=== PATIENT | male | born 1950 | race Caucasian/White ===

== ENCOUNTER 2017-09-08 11:04 | Emergency (ER) | payer MEDICARE ==
[~2017-09-08] VITALS: Ht 175.3 cm; Wt 113.4 kg
--- NOTE | 2017-09-08 11:08 | Emergency Room Report ---
History of Present Illness Time Seen by [id number] Presenting Problem in Triage Pt arrived:Wheelchair Presenting Problem:STATES AT WORK LOST BALANCE, C/O WEAKNESS, NAUSEA Onset of symptoms date/time:/ or onset unknown for:MEDICAL HX UNKNOWN Treatment Prior to Arrival: ASSAYER Provided by: Sepsis Risk Assessment: Temp: 97.8 B/P: 177/85 MAP: 115 Pulse: 60 Resp: 18 Recent fever? N Clinical Suspician of Infection? N Mental Status: 1 - Regular (Normal Baseline) Sepsis Risk:Low Sepsis Risk Have you (or family members/close friends) recently traveled outside the [place]? N If Yes, where/when: Have you had exposure to infectious disease within the past month? N TB? Other? 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 He feels a little off balance, but denies any chest pain, denies near syncope, FSBS 234 on arrival. No fever or vomiting, no diarrhea, no abdominal pain, no unilateral symptoms. RN reports he neede assistance from car and seemed diffusely weak. No change in speech. No cephalgia. [place] a little diaphoretic and had some nausea, but feeling somewhat better now. No congestion or earache. RN states he had diaphoresis on arrival. This has abated. ALLERGIES Coded Allergies: Penicillins (09/08/17) History Medical History Surgical Hx Previous Surgery?N Review of Systems All Other Systems Reviewed and Negative Psychiatric/Neurological see HPI Physical Exam Vital Signs Vital Signs Date Time Temp Pulse Resp B/P Pulse O2 O2 Flow FiO2 Ox Delivery Rate 09/08 1222 97.8 60 18 144/83 94 09/08 1201 60 144/83 09/08 1200 57 140/71 09/08 1200 57 148/75 09/08 1159 57 137/72 09/08 1105 97.8 60 18 177/85 94 General Appearance normal appearance, WD/WN, no apparent distress Eye Exam - bilateral eye normal exam, bilateral eye PERRL, bilateral eye EOMI (no diplopia) Ear, Nose, Throat abnormal TM (R) (cloudy TM on R; op wet) Neck normal inspection, non-tender, supple, full range of motion Respiratory Status Yes: trachea midline, chest symmetrical. No: respiratory distress, non tender chest, tender on palpation, use of accessory muscles, pain on inspiration, pain on expiration, productive cough, non productive cough. Lung Sounds bilateral: normal breath sounds, lungs clear. Cardiovascular normal exam, regular rate/rhythm, no peripheral edema, no gallop, no JVD, no murmur, no rub, normal peripheral pulses Gastrointestinal normal bowel sounds, normal exam, non tender, soft, no organomegaly, no pulsatile mass, no guarding, no rebound Extremities non-tender, normal range of motion, normal inspection, normal capillary refill, no calf tenderness Strength 5 Upper Ext (L), 5 Upper Ext (R), 5 Lower Ext (L), 5 Lower Ext (R) Rectal normal exam, normal rectal tone (brown stool;card to lab) Nurse present during exam? 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 No tremor. NIHSS 0. Glascow Coma Scale Glascow Coma Scale Response Value EYE response: 4 Spontaneously 4 MOTOR response: 6 OBEYS 6 VERBAL response: 5 Oriented & Converses 5 Total 15 Reflexes Reflexes normal Yes Skin intact, normal color, warm/dry, pallor Stroke Score/Tx Stroke Evaluation Initial symptoms indicative of possible stroke? Yes NIH STROKE SCORE NIH STROKE SCORE Response Value 1a.Level of Consciousness ALERT 0 1b.LOC Questions ANSWERS BOTH CORRECTLY 0 1c.LOC Commands OBEYS BOTH CORRECTLY 0 2 .Best Gaze NORMAL 0 3 .Visual NO VISUAL LOSS 0 4 .Facial Palsy NORMAL 0 5a.Motor Arm Left NO DRIFT 0 5b.Motor Arm Right NO DRIFT 0 6a.Motor Leg Left NO DRIFT 0 6b.Motor Leg Right NO DRIFT 0 7 .Limb Ataxia ABSENT 0 8 .Sensory NORMAL 0 9 .Best Language NO APHASIA 0 10.Dysarthria NORMAL ARTICULATION 0 ED.NIH11 NO NEGLECT 0 Total 0 Medical Decision Making LABS/Meds/Orders Pt receiving controlled substance in ED? No Results/Orders Laboratory Tests 09/08/17 1210: Stool Occult Blood NEGATIVE 09/08/17 1145: Sodium 135 L, Potassium 4.8, Chloride 102, Carbon Dioxide 29, BUN 23 H, Creatinine 1.0, Estimated Creat Clear 113, Estimated GFR (MDRD) 74, Glucose Pending, Calcium Pending, Total Bilirubin Pending, AST Pending, ALT Pending, Alkaline Phosphatase 88, Creatine Kinase 67, CK-MB (CK-2) Rel Index 1.5, CK and CKMB Interp 1.0, Troponin I < 0.02, Total Protein 7.3, Albumin 3.8, Globulin 3.5 H, Albumin/Globulin Ratio 1.1, WBC 8.0, RBC 5.03, Hgb 14.5, Hct 44.4, MCV 88.2, RDW 13.6, Plt Count 254, MPV 8.0, Gran % 77.4, Gran # 6.2, Lymphocytes % 16.7, Monocytes % 3.1, Eosinophils % 2.0, Basophils % 0.8, Lymphocytes # 1.3, Monocytes # 0.3, Eosinophils # 0.2, Basophils # 0.1, PUBS MCHC 32.7, MCH 28.8 Orders Procedure Date/time Status URINALYSIS/COMPLETE 09/08 UNK Active DIET-NOTHING BY MOUTH 09/08 D Active STOOL OCCULT BLOOD 09/[address] HEAD W/O CONTRAST 09/08 1111 Active 12 LEAD EKG-[facility] (INITIAL) 09/08 1110 Active ELECTROCARDIOGRAM REQUEST 09/[address] HEAD REQ 09/08 1108 Active CHEST-PORTABLE 09/08 1108 Active ORTHOSTATIC B/P 09/08 1108 Active FSBS REQUEST BY CARE AREA 09/08 1108 Active CBC WITH AUTO DIFF 09/08 1108 Complete CARDIAC ENZYMES 09/08 1108 Active CHEM 12 PROFILE 09/08 1108 Active CM/EKG CM/EKG EKG rate, rhythm, no evid. of ischemic chgs, no ectopy, normal QRS, normal ND (no prior;Q w inf likely old), normal EKG, SB 58 XRAY/CT/US XRAY/CT/US XRAY chest XR interpretation by reviewed by me Xray Results normal/NAD, no infiltrates (borderline CM;large habitus), prominent vascular markings but neg acute CT head CT interpretation by reviewed by me ([facility] report reviewed) Time results known: 1236 CT Results normal/NAD (neg acute per [facility] report) Consult MD Physician Consult Time Called 1235 Reason Transfer to facility, Neuro eval/care Progress ED Progress Notes 1 Date 09/08/17 Time 1151 Comment Recheck: neurologically remains intact, feeling better. Not orthostatic. Unable to reproduce symptoms when turning head from side to side. ED Progress Notes 2 Date 09/08/17 Time 1208 Comment t/c to radiology requesting update on release of CT results. Patient feels better and is able to stand unassisted, but when attempts to walk he lists to the left is unable to take a step forward. ED Progress Notes 3 Date 09/08/17 Time [address] results. ED Progress Notes 4 Date 09/08/17 Time 1244 Comment I spoke with Dr. Mack at [facility] neurology stroke team: agrees to have patient transferred emergently with disc; does not recommend TPA at this time. ED Progress Notes 5 Date 09/08/17 Time 1249 Comment NIHSS remains 0 but patient unable to stand/walk. Concerning for cerebellar stroke. Departure Departure Time of Disposition 1236 Disposition DC/XFER from ER to [facility] Clinical Impression Primary Impression: Inability to walk Condition STABLE ED Critical Care Critical Care No at [id number]
--- OUTSIDE RECORDS SUMMARY | 2017-09-08 11:49 | External Medical Summary Rpt | CCD ---
Author Author [employer] Organization [employer] Address Unknown Phone Unavailable Purpose Continuity of Care Document - through 2016
--- OUTSIDE RECORDS SUMMARY | 2017-09-08 11:49 | External Medical Summary Rpt | CCD ---
Author Author [employer] Address Unknown Phone [email or web address] Purpose Continuity of Care Document - through 2016
--- OUTSIDE RECORDS SUMMARY | 2017-09-08 11:49 | External Medical Summary Rpt | CCD ---
Author Author BETIT[employer] Address Unknown Phone [email or web address] Purpose Continuity of Care Document - through 2016
--- OUTSIDE RECORDS SUMMARY | 2017-09-08 11:50 | External Medical Summary Rpt | CCD ---
Demographics Preferred Language Armenian Marital Status Unknown Taoism Affiliation Unknown Race Unknown Ethnic Group Unknown Author Author [employer] Address Unknown Phone Immunization No patient found.
--- OUTSIDE RECORDS SUMMARY | 2017-09-08 11:50 | External Medical Summary Rpt | CCD ---
Demographics Preferred Language Mongolian Marital Status Unknown Jew Affiliation Unknown Race Unknown Ethnic Group Unknown Author Author [employer] Address Unknown Phone Immunization No patient found.
--- OUTSIDE RECORDS SUMMARY | 2017-09-08 11:50 | External Medical Summary Rpt ---
Author Author [employer] Laws, [employer] Organization [employer] Address Unknown Phone Unavailable
[2017-09-08 11:56] LABS: HEMOGLOBIN 14.5 g/dL (14.1-18.0); LYMPH # 1.3 K/mm3 (0.7-4.5); LYMPH % 16.7 % (10-50)
[2017-09-08 12:18] LABS: STOOL OCCULT BLOOD NEGATIVE (NEG)
[2017-09-08 12:18] LABS: BUN 23 mg/dL (7-18)
[2017-09-08 12:28] LABS: GFR (ESTIMATED) 74 ML/MIN (>60)
[2017-09-08 13:06] VITALS: BP 140/72
--- NOTE | 2017-09-08 14:43 | RADIOLOGY REPORT PS360 ---
CT HEAD W/O CONTRAST HISTORY: ACUTELY DIZZY/ OFF BALANCE ORDERING PHYSICIAN: Lisa Tomas MD PATIENT AGE: 67 years COMPARISON: None. FINDINGS: There is mild prominence of the ventricles and sulci consistent with volume loss. Low density changes are present in the periventricular region consistent with ischemic gliotic change from small vessel disease. No midline shift, mass effect, intracranial hemorrhage, or hydrocephalus is evident. No mastoid effusion. No sinus air-fluid level. No acute calvarial abnormality. IMPRESSION: No acute intracranial pathology
--- NOTE | 2017-09-08 14:44 | RADIOLOGY REPORT PS360 ---
CHEST-PORTABLE HISTORY: dizzy, weak ORDERING PHYSICIAN: Lisa Tomas MD PATIENT AGE: 67 years COMPARISON: None available FINDINGS: The cardiomediastinal silhouette and pulmonary vascularity are within normal limits. The lungs are clear without infiltrates, suspicious nodules, or pleural effusions. No acute bony abnormalities. IMPRESSION: Negative chest, no acute finding
== END 2017-09-08 13:07 | disposition short-term general hospital (02) ==
LOC: ER 11:04
PROVIDERS: Emergency Medicine
DX: R26.2 Difficulty in walking, not elsewhere classified (principal); R29.700 NIHSS score 0
CPT/HCPCS: G0328